=== PATIENT | female | born 1990 | race African-American/Black ===

== ENCOUNTER 2024-02-23 10:05 | Outpatient (AMB) | payer BC, SELFPAY ==
--- NOTE | 2024-02-23 10:07 | MHC.PC.OV ---
Vital Signs 02/23/24 10:11 Height 5 ft 4 in Weight 221 lb BMI 37.9 BP 112/70 Blood Pressure Location Rt brachial Position Sitting Pulse 62 Pulse Source Pulse Oximeter Pulse Oximetry (%) 98 Intake Visit Reasons: CONSULTING SERVICES MANAGER /// Est Care Intake Note: pt is here for est care Manager Testing Required: No Accompanied by: Self / Same As Patient Allergies No Known Allergies Allergy (Verified 02/23/24 10:09) Medication List - Last Reconciled 02/23/24 by Isidro Washington MD No Known Home Meds Tobacco use date assessed: 02/23/24 Dental Screening Dental Screen Date: 02/23/24 Did you have a dental visit in the last 12 months?: Yes Did you have a dental problem in the last 6 months where you did not have access to dental care?: No Was dental information given to patient?: Patient has dentist HPI CONSULTING SERVICES MANAGER /// Est Care HPI Details New Patient? ?? Prior PCP:?No PCP Acute issue(s):? Plantar fasciitis ?? PMHx:? Chronic sore throat as a child. SurgHx:? None FHx:? Mom: DM2. Uncles: HTN. SocHx:? Nonsmoker. EtOH: Occassioanl Wine 1-2 dr 1-2 x a month. No drugs PFSH Surgical History (Updated 02/23/24 @ 10:12 by Tyson Oleary CMA) No pertinent past surgical history Family History (Updated 02/23/24 @ 10:13 by Tyson Oleary CMA) Mother Diabetes Father No problems noted. Social History (Updated 02/23/24 @ 10:14 by Tyson Oleary CMA) Housing: Apartment Alcohol intake: current Alcohol intake frequency: a few times a month Alcohol type: wine Patient Tobacco Use Status: Never used Tobacco e-Cigarette/Vaping Use: Never Used Use of substances other than those prescribed or required for medical reasons: No service: No Current occupational status: employed Current occupation: professor @ [employer] Current occupational exposures/hazards: No Cognitive needs: No Hearing needs: No Vision needs: No Questionnaire PHQ-9 Over the last 2 weeks, how often have you been bothered by any of the following problems? 1. Little interest or pleasure in doing things: not at all 2. Feeling down, depressed, or hopeless: not at all 3. Trouble falling or staying asleep, or sleeping too much: not at all 4. Feeling tired or having little energy: not at all 5. Poor appetite or overeating: not at all 6. Feeling bad about yourself - or that you are a failure or have let yourself or your family down: not at all 7. Trouble concentrating on things, such as reading the newspaper or watching television: not at all 8. Moving or speaking so slowly that other people could have noticed. Or the opposite - being so fidgety or restless that you have been moving around a lot more than usual: not at all 9. Thoughts that you would be better off or of hurting yourself in some way: not at all Total score: 0 Depression Screening Interpretation: Negative Depression Screening Done: Yes 75846 - PHQ-9 Billing: Yes Source: Developed by Drs. Christian Valera, Dafne Braxton, Alex Cheatham and colleagues, with an educational nhi from [employer]. Thrive Questionnaire Date Thrive assessed: 02/23/24 I am a: Patient What is your living situation today?: I have a steady place to live Within the past 12 months, did the food you bought not last and you didn't have the money to get more?: Never true Within the past 12 months, did you worry whether your food would run out before you got money to buy more?: Never true Do you have trouble paying for medicines?: No Do you have trouble getting transportation to medical appointments?: No Do you have trouble paying your heating and electricity bill?: No Do you have trouble taking care of your child, family member or friend?: No Do you have trouble with day-to-day activities such as bathing, preparing meals, shopping, managing finances, etc.?: No Are you currently unemployed and looking for a job?: No Are you interested in more education?: No Please select the resources that you would like help with: None Currently or been in a relationship where the following occur: No concerns reported THRIVE Score: 0 AUDIT C Alcohol Use Questionnaire (AUDIT-C) 1. How often do you have a drink containing alcohol?: Monthly or less 2. How many drinks containing alcohol do you have on a typical day when you are drinking?: 1 or 2 3. How often do you have six or more drinks on one occasion?: Never Total Score: 1 Score Reviewed/Action Taken: Yes CORAL-7 AMB Questionnaire CORAL-7 Date CORAL - 7 assessed: 02/23/24 Feeling nervous, anxious, or on edge: 0 = Not at all Not being able to stop or control worryin = Not at all Worrying too much about different things: 0 = Not at all Trouble relaxin = Not at all Being so restless that it is hard to sit still: 0 = Not at all Becoming easily annoyed or irritable: 0 = Not at all Feeling afraid as if something awful might happen: 0 = Not at all Total CORAL-7 score (0-4 normal; 5-9 mild; 10-14 moderate; 15-21 severe): 0 Source: Developed by Drs. Christian Valera, Dafne Braxton, Alex Cheatham and colleagues, with an educational nhi from [employer]. CORAL-7 Assessment Billing CORAL-7 Assessment Tool: CORAL-7 Assessment 03871 Review of Systems Const Denies chills, Denies fatigue, Denies fever(s), Denies headache(s) and Denies weakness Eyes Denies change in vision ENT Denies dizziness, Denies headache(s), Denies hearing loss, Denies nasal congestion, Denies sinus pain, Denies sinus pressure and Denies sore throat Card Denies chest pain, Denies lightheadedness, Denies dyspnea and Denies other (palpitations) Resp Denies cough, Denies dyspnea and Denies wheezing GI Denies abdominal pain, Denies melena, Denies hematochezia, Denies change in bowel habits, Denies dyspepsia and Denies nausea Denies hematuria and Denies dysuria Musc Denies abnormal gait, Denies myalgias, Denies arthralgias, Denies numbness and Denies tingling Skin/Breast Denies rash, Denies unusual bruising and Denies wounds Neuro Denies abnormal gait, Denies dizziness, Denies headache(s), Denies memory loss, Denies numbness, Denies Sensory deficit (Neuro), Denies tingling and Denies weakness Psych Denies anxiety, Denies depression and Denies memory loss Endo Denies cold intolerance, Denies fatigue, Denies heat intolerance, Denies polydipsia and Denies polyuria Yogesh/Lymph Denies easy bleeding and Denies easy bruising Aller/Immun Denies wheezing Physical exam (Primary Care) Vital Signs: Last Vital Signs Pulse 62 02/23/24 10:11 BP 112/70 02/23/24 10:11 Pulse Ox 98 02/23/24 10:11 BMI result Body Mass Index 37.9 Tobacco/Smoking Status: Tobacco use Status Tobacco use date assessed 02/23/24 02/23/24 10:10 Patient Tobacco Use Status Never used Tobacco 02/23/24 10:14 e-Cigarette/Vaping Use Never Used 02/23/24 10:14 PHQ-9: PHQ-9 Score PHQ-9: Total score 0 02/23/24 10:10 Depression Screening Interpretation: Negative Thrive Assessment: Date of Thrive Assessment Date Thrive assessed 02/23/24 02/23/24 10:10 Currently or been in a relationship where the following occur: No concerns reported Const General: no acute distress, well developed, alert and awake Nutritional Appearance: well nourished Orientation/consciousness: patient oriented x3 HENMT Head: Yes normocephalic and Yes atraumatic Ears: hearing grossly normal bilaterally and TM's normal bilaterally General nose exam: Normal external nose present and Normal nares present Mouth: Normal oral and palatal mucosa present and moist mucous membranes Teeth and gingiva: dentition normal Throat: Yes posterior oropharynx normal Eyes General: appearance normal, both eyes and all related structures Pupils: Equal, round and reactive pupils present and Pupil accommodation reflex normal EOM: EOMs intact bilaterally Neck Neck: Yes normal visual inspection, Yes no lymphadenopathy and Yes trachea midline Thyroid: Thyroid normal Carotids: no bruits Lymphatic: no lymphadenopathy noted Chest Chest palpation & inspection: normal inspection of the chest Resp Effort & Inspection: normal respiratory effort Auscultation: clear to auscultation bilaterally Cardio Rate: regular rate Rhythm: regular rhythm Heart sounds: S1 normal heart sound present, S2 normal heart sound present, no gallops, no murmurs and no rubs Bruits: no abdominal aortic bruits and no carotid bruits GI Palpation (GI): No Abdominal aortic bruit present, Soft to palpation, nontender, No hepatosplenomegaly present and No Rebound tenderness present Auscultation: normal bowel sounds General: Yes no CVA tenderness Back/Spine/Pelvis Back: no CVA tenderness Cervical Spine: cervical ROM normal and No Cervical spine tenderness Thoracic/Lumbar Spine: thoraco-lumbar ROM normal, No pain with thoraco-lumbar ROM, No thoracic spinal tenderness and No lumbar spinal tenderness Skin Lesions: no lesions Rashes: no rashes Trauma: no lacerations or abrasions Wounds: no wounds Nails: normal Neuro General: patient oriented x3 Cranial nerves: Yes Equal, round and reactive pupils present Cognition (Neuro): normal cognition Gait exam (Neuro): Normal gait present Motor exam (neuro): 5/5 motor strength present throughout Sensory Exam: No Sensory deficit (Neuro) Deep tendon reflexes (DTR's): Right patellar reflex intensity grade: 2+ and Left patellar reflex intensity grade: 2+ Extrem General: Yes normal to inspection and No edema Psych Appearance: grossly normal Affect: normal affect Attitude: cooperative Thought process: Normal thought process present Coding Level of Care Code New Pt Level 3 (58046) New Pt Prev Care 18-39yr(22132 Diagnoses Adult general medical exam Z00.00 Plantar fasciitis M72.2 Screening for cervical cancer Z12.4 Additional Codes CORAL-7 Assessment Billing - CORAL-7 Assessment Tool: CORAL-7 Assessment 66611 ([id number]) PHQ-9 - 07130 - PHQ-9 Billing: Yes ([id number]) Assessment & Plan Assessment & Plan (1) Adult general medical exam: Code(s): Z00.00 - Encounter for general adult medical examination without abnormal findings Category: Medical Plan: 34-year-old?female?presents?as?new?patient?for?complete?physical?exam Encouraged?healthy?diet?with?active?lifestyle (2) Plantar fasciitis: Code(s): M72.2 - Plantar fascial fibromatosis Category: Medical Plan: Left?plantar?foot?pain, likely?plantar?fasciitis Demonstrated?exercises NSAIDs Ice/heat Heel?cups/cushions?and?consider?different?footwear If?not?improving?will?refer?to?Podiatry (3) Screening for cervical cancer: Code(s): Z12.4 - Encounter for screening for malignant neoplasm of cervix Category: Medical Plan: Patient?has?not?had?a?Pap?smear?in?greater?3?years. 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 Panel Fast Today Z00.00 - Encounter for general adult medical examination without abnormal findings TSH reflex Free T4 Today Z00.00 - Encounter for general adult medical examination without abnormal findings Microalbumin, Random (w Creat) Today I10 - Essential (primary) hypertension
[2024-02-23 10:11] VITALS: BP 112/70; PULSE 62; O2SAT 98; BMI 37.9
== END 2024-02-23 10:50 | disposition home or self-care (01) ==
PROVIDERS: PCP Family Medicine; Visit Provider Family Medicine
DX: Z00.00 Encounter for general adult medical examination without abnormal findings (principal); M72.2 Plantar fascial fibromatosis

== ENCOUNTER → 2024-02-23 10:05 | Outpatient (BNVA) | payer BC, SELFPAY | PROVIDERS: PCP Family Medicine; Visit Provider Family Medicine | DX: Z00.00 Encounter for general adult medical examination without abnormal findings (principal); M72.2 Plantar fascial fibromatosis | CPT/HCPCS: 96127 ==

== ENCOUNTER 2024-02-26 09:40 | Outpatient (REF) | payer BC, SELFPAY ==
[2024-02-26 11:00] LABS: MANUAL DIFF FLAG NO
[2024-02-26 11:31] LABS: Basophils Percent Auto 0.7 % (0-2); Eosinophils Absolute Auto 0.1 X10*3/uL (0.0-0.4); Hematocrit 35.8 % (37.0-47.0); Hemoglobin 11.2 g/dl (12.0-16.0); Imm Gran Abs Auto 0.01 X10*3/uL (0.00-0.03); Imm Gran Pct Auto 0.2 % (0.0-0.4); Lymphocytes Absolute Auto 2.9 X10*3/uL (1.2-4.9); Mean Corpuscular HGB Conc 31.3 g/dl (31.0-35.0); Mean Corpuscular Hemoglobin 24.8 pg (27.0-33.0); Mean Corpuscular Volume 79.2 fL (80.0-98.0); Mean Platelet Volume 11.1 fL (9.4-12.3); Monocytes Absolute Auto 0.4 X10*3/uL (0.1-1.2); Neutrophils Absolute Auto 2.4 x10*3/uL (2.0-8.3); Neutrophils Percent Auto 41.1 % (45-73); Platelet Count 298 X10*3/uL (160-400); Red Blood Count 4.52 X10*6/uL (4.20-5.50); Red Cell Distribution Width 14.6 % (11.0-16.0); White Blood Count 5.7 X10*3/uL (4.8-10.8)
[2024-02-26 12:22] LABS: Alanine Aminotransferase 16 U/L (0-31); Albumin Level 3.8 g/dL (3.5-5.0); Alkaline Phosphatase 134 U/L (39-117); Anion Gap 8 (12-20); Aspartate Amino Transferase 22 U/L (5-31); Bilirubin Total 0.3 mg/dL (0.0-1.0); Blood Urea Nitrogen 17 mg/dL (9-16); Calcium 9.2 mg/dL (8.4-10.2); Carbon Dioxide 29 mmol/L (22-29); Chloride 105 mmol/L (96-108); Cholesterol 177 mg/dL (<200); Estimated Glomerular Filt Rate > 60; Glucose Fasting 84 mg/dL (60-99); HDL Cholesterol 60 mg/dL (>40); LDL Cholesterol Calculated 105 mg/dL (<100); Potassium 4.2 mmol/L (3.3-5.1); Sodium 138 mmol/L (135-145); TSH reflex Free T4 0.74 uIU/mL (0.32-4.0); Total Protein 7.5 g/dL (6.5-8.0); Triglycerides 60 mg/dL (<150)
[2024-02-26 14:06] LABS: Appearance Urine Clear; Color Urine Yellow; Glucose Urine UA Negative (Negative); Leukocyte Esterase Urine Negative (Negative); Nitrite Urine Negative (Negative); PH 7.5 (5.0-9.0); Urine Blood Negative (Negative); Urine Ketones Negative (Negative); Urine Protein Negative (Neg-Trace)
[2024-02-26 14:36] LABS: Creatinine Urine 39.48 mg/dL; Microalbumin Urine < 5.0 mg/L
[2024-02-28 00:38] LABS: LDL Cholesterol Direct 94 mg/dL (<100)
== END 2024-02-26 09:41 | disposition home or self-care (01) ==
LOC: HO.WFDLDS 09:40
PROVIDERS: Visit Provider Family Medicine
DX: Z00.00 Encounter for general adult medical examination without abnormal findings (principal); I10 Essential (primary) hypertension; E78.5 Hyperlipidemia, unspecified
CPT/HCPCS: 36415; 80053; 80061; 81003; 82043; 82570; 83721; 84443; 85025

== ENCOUNTER 2024-05-01 09:10 | Outpatient (REF) | payer BC, SELFPAY | END 2024-05-01 09:11 | disposition home or self-care (01) | LOC: HO.LAB 09:10 | PROVIDERS: PCP Family Medicine; Visit Provider Advanced Practice Midwife | DX: Z13.89 Encounter for screening for other disorder (principal) ==

== ENCOUNTER 2024-05-01 09:10 | Outpatient (AMB) | payer BC, SELFPAY ==
--- NOTE | 2024-05-01 09:13 | A.OFFVIS_ITS ---
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 Mascara Molder: Mascara Molder Present (Iraida) Accompanied by: Self / Same As Patient Allergies No Known Allergies Allergy (Verified 05/01/24 09:17) Medication List - Last Reconciled 05/01/24 by Ariana Hernadez CNM No Known Home Meds Is last menstrual period known: Yes Last menstrual period: 03/29/24 Post menopausal: No Patient : No HPI HPI SEC[employer] SCHO[employer]INCIPAL Annual/PCP ref: Details: Patient here for tube winder annual exam and she wants to talk about her periods being irregular and she is trying to get she got in December. 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 She tries to eat very clean and she does do some exercise. She recently saw her primary care provider and had full blood work and she said the only thing was that she was a little bit anemic. Her periods have been more i rregular since she gained weight perhaps around 3 years ago they were more regular then this current period is 34 days late so far and she has missed up to 3 months in the past and the last long gap a few months ago was 65 days. [facility] Surgical History No pertinent past surgical history Family History Mother Diabetes Father No problems noted. 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[employer] Current occupational exposures/hazards: No Cognitive needs: No Hearing needs: No Vision needs: No Female Reproductive History Menstrual Age of Menarche: 13 Duration of menses: 3-5 days Date of last menstrual period: 03/29/24 Total pregnancies: 0 Physical Exam Vital Signs: Last Vital Signs BP 126/74 05/01/24 09:18 BMI result Body Mass Index 36.9 Const General: healthy appearing, comfortable, no acute distress, well developed and alert Nutritional Appearance: average body habitus Orientation/consciousness: patient oriented x3 Limitations: no limitations HEENT Head: Yes normocephalic Neck Neck: Yes normal visual inspection Chest Chest palpation & inspection: normal inspection of the chest Breast/axilla inspection: normal inspection of the breasts and normal inspection of the axillae Breast/axilla palpation: normal palpation of the breasts and normal palpation of the axillae Resp Effort & Inspection: normal respiratory effort GI Inspection: Yes normal to inspection, No Abdominal wall edema and No distended Palpation (GI): Soft to palpation and nontender Other: External exam within normal limits vagina is pink and moist very healthy- appearing cervix nulliparous pink smooth healthy scant amount white discharge which possibly could be consistent with luteal phase cervix is nulliparous long close thick mobile nontender uterus nontender mobile difficult feel but feels midposition adnexa nontender nonenlarged and very good tone with Kegel. General: Yes bladder normal to palpation External Female Exam: normal external appearance and normal appearance of the urethra Speculum Exam - Vagina: normal appearance of the vagina, normal palpation and normal vaginal discharge Speculum Exam - Cervix: normal appearance of the cervix, normal palpation and nontender Bimanual exam- vagina & uterus: normal bimanual exam, normal palpation, uterine size normal, bladder normal to palpation, consistency normal, normal palpation, uterine mobility normal, uterine shape normal, No Cervical tenderness present, non-tender and no cervical motion tenderness Bimanual Exam- Adnexa, other: normal adnexae, no masses, normal and No adnexal tenderness Neuro General: patient oriented x3 Assessment & Plan Assessment & Plan (1) Screening for cervical cancer: Comment: pap done 05/01/24. Code(s): Z12.4 - Encounter for screening for malignant neoplasm of cervix Category: Medical (2) Well woman exam with routine gynecological exam: Code(s): Z01.419 - Encounter for gynecological examination (general) (routine) without abnormal findings Category: Medical (3) Menstrual periods irregular: Code(s): N92.6 - Irregular menstruation, unspecified Category: Medical (4) Patient desires : Code(s): Z31.9 - Encounter for procreative management, unspecified Category: Medical (5) Obesity (BMI 30.0-34.9): Code(s): E66.811 - Obesity, class 1 Category: Medical Plan -----Discussed in this visit the following: healthy balanced diet, regular and consistent exercise, getting recommended health screens, doing the best she can for her particular health concerns, kegel exercises, pap smear screening and followup recommendations, mammography screening and SBE, normal changes in cycles in her life stage--- ( not due for mammogram till age 42) ---I discussed with pt some of the optimal strategies for planning a , including achieving the best health she can before , including heathy balanced diet, exercise, wt loss to ideal BMI if appropriate, avoiding toxic substances and medications, not smoking, and taking a multivitamin w folic acid daily. Any specific health concerns should be managed before seeking/ putting oneself at risk of pregancy. In addition I reviewed normal cycles, fertility awareness and signs of ovulation, and timing to avoid, and achieve when she feel ready. I also discussed emotional and relationship and support readiness before embarking on . --Discussed in general terms the challenges of obesity and challenges for her health and efforts she is engaging in to manage this including dietary changes water intake attention to sleep inclusion of a regular exercise have it and dealing with the may need stressors of life that can contribute to obesity in general. Encouraged her to continue in all have her best efforts --This note is constructed using voice recognition software. While every effort has been made to ensure accuracy, logistics administrator errors may have been included. -----discussed in particular during this visit the interplay between elevated body mass and all of the elevated hormonal changes that occur with this and the metabolic changes that occur as well over time with increased risk of hypertension diabetes and other issues. Discussed that in particular as relates to menstrual cycles and fertility this elevated hormonal milieu of elevated estrogen and testosterone amongst many others contributes to suppress ovulation at times and therefore late menstrual cycles and also the side effects of increased facial hair and hair thinning on the scalp and acne etc. for women. In particular it can make it difficult to time when she might be ovulating and therefore harder to get in addition obesity puts 1 at risk for other health challenges in a such as hypertension gestational diabetes and many other risks. Discussed that all of these concerns would be best served by working at weight loss in a targeted way with very healthy diet and increasing ones metabolism with aerobic exercise to 30-60 minutes a day. Also discussed other methodologies that are currently around such as the weight loss medications and surgeries however they are not usually considered unless there are comorbidities. Discussed that if in her case as she is 34 years old if she kind of reaches the six-month point having good records of her menses when she has had symptoms or positive OPKs's as well as when she has had sex, she might be william not to waste too much time before seeking fertility services and the only place aware of in this part of [place] is in the [facility], and she might need a referral from her primary or she might not. -Pap smear was done this visit as well as testing for gonorrhea chlamydia trichomoniasis bacterial vaginosis yeast, routines. .1 yr or prn Coding Level of Care Code New Pt Prev Care 18-39yr(74033 Diagnoses Screening for cervical cancer Z12.4 Well woman exam with routine gynecological exam Z01.419 Menstrual periods irregular N92.6 Patient desires Z31.9 Obesity (BMI 30.0-34.9) E66.811 Time Spent (min) 50 Comment 90% spent discussing the interplay between weight issues her her cycles and efforts to con
[2024-05-01 09:18] VITALS: BP 126/74; BMI 36.9
== END 2024-05-01 10:21 | disposition home or self-care (01) ==
LOC: HO.HWSM 09:11
PROVIDERS: PCP Family Medicine; Visit Provider Advanced Practice Midwife
DX: Z01.419 Encounter for gynecological examination (general) (routine) without abnormal findings (principal); N92.6 Irregular menstruation, unspecified; Z31.9 Encounter for procreative management, unspecified; E66.811 Obesity, class 1
CPT/HCPCS: 99385; 99459

== ENCOUNTER 2024-05-01 15:16 | Outpatient (REF) | payer BC, SELFPAY ==
[2024-05-02 05:11] LABS: CT PCR NOT DETECTED (Not Detect.); NG PCR NOT DETECTED (Not Detect.)
[2024-05-02 13:02] LABS: Bacterial Vaginosis PCR POSITIVE (Negative); Candida Group PCR NOT DETECTED (Not Detect); Candida glab krusei PCR NOT DETECTED (Not Detect); Trichomonas vaginalis PCR NOT DETECTED (Not Detect)
[2024-05-08 13:58] LABS: HPV Genotype 16 Negative (Negative); HPV Genotype 18 Negative (Negative); HPV High Risk Negative (Negative)
== END 2024-05-01 15:17 | disposition home or self-care (01) ==
LOC: HO.LNP 15:16
PROVIDERS: Visit Provider Advanced Practice Midwife
DX: Z00.00 Encounter for general adult medical examination without abnormal findings (principal); N89.8 Other specified noninflammatory disorders of vagina; Z20.2 Contact with and (suspected) exposure to infections with a predominantly sexual mode of transmission; Z11.51 Encounter for screening for human papillomavirus (HPV); Z72.89 Other problems related to lifestyle; Z87.42 Personal history of other diseases of the female genital tract
CPT/HCPCS: 81515; 87491; 87591; 87626; 88175

== ENCOUNTER 2024-06-07 09:54 | Outpatient (AMB) | payer BC, SELFPAY ==
--- NOTE | 2024-06-07 09:55 | A.OFFVIS_ITS ---
Intake Visit Reasons: Discussing ,Hormonal test Public Health Sanitarian Technician Required: No Information Interpreted: non-clinical & clinical Allergies No Known Allergies Allergy (Verified 06/07/24 09:55) Medication List - Last Reconciled 06/07/24 by Ariana Hernadez CNM No Known Home Meds HPI HPI Discussing ,Hormonal test: Details: This is a tele visit to discuss patient's questions about fertility. She and I had a visit earlier and she has been tracking her periods her last period just came on June 02 and she had a 65 day cycle culminating in that.. She got recently and is 34 years old and is eager to get . 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 She used to have normal regular periods before she gained the weight. She has been keeping very careful track she did an O PK once in the last cycle and it was positive but it did not seem to correlate with symptoms for her. She has an appointment next week at [facility] in [place]. She is actually wondering what questions she needs to ask them and so this visit was spent exploring her history of her cycles and again revisiting the relationship between weight gain and elevated hormonal levels which in turn then suppress regular ovulation and discussed that it would be appropriate to wait till she speaks with them to have any discussion of particular hormone tests done and they will guide her journey. Her most burning question was ?can I get and I suggested that that is a great question to start with and they will help guide her. I recommend to her that she do whatever she can to work towards having the healthiest cleanest diet low in carbs and higher in protein and fresh vegetables and work on being physically active and this will all help her achieve that her health in general which will aid in healthier . I also discussed with her places in the [facility] that are available to her for childbirth and she would not be interested in a low into event of so [facility] or [facility] would be her options. She has not yet started vitamins as we discussed I did discuss the importance of a folic acid supplement. [facility] Surgical History No pertinent past surgical history Family History Mother Diabetes Father No problems noted. 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[employer] Current occupational exposures/hazards: No Cognitive needs: No Hearing needs: No Vision needs: No Female Reproductive History Menstrual Age of Menarche: 13 Date of last menstrual period: 06/02/24 Telehealth Telehealth Telehealth Platform: Telephone Location of provider rendering services: practice address Location of patient: address on file Patient Identification confirmed using: Name, : Yes Telehealth method: video Patient verbally consented to treatment: Yes Patient verbally consented to billing insurance company: Yes Patient informed of any privacy concerns related to visit: Yes Minutes spent on Phone/Video with Pt.: 18 (5 c/18 video/7 charting=30) Assessment & Plan Assessment & Plan (1) Menstrual periods irregular: Code(s): N92.6 - Irregular menstruation, unspecified Category: Medical (2) Patient desires : Code(s): Z31.9 - Encounter for procreative management, unspecified Category: Medical (3) Obesity (BMI 30.0-34.9): Code(s): E66.811 - Obesity, class 1 Category: Medical Plan This is a tele visit to discuss patient's questions about fertility. She and I had a visit earlier and she has been tracking her periods her last period just came on June 02 and she had a 65 day cycle culminating in that.. She got recently and is 34 years old and is eager to get . 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 She used to have normal regular periods before she gained the weight. She has been keeping very careful track she did an O PK once in the last cycle and it was positive but it did not seem to correlate with symptoms for her. She has an appointment next week at [facility] in [place]. She is actually wondering what questions she needs to ask them and so this visit was spent exploring her history of her cycles and again revisiting the relationship between weight gain and elevated hormonal levels which in turn then suppress regular ovulation and discussed that it would be appropriate to wait till she speaks with them to have any discussion of particular hormone tests done and they will guide her journey. Her most burning question was ?can I get and I suggested that that is a great question to start with and they will help guide her. I recommend to her that she do whatever she can to work towards having the healthiest cleanest diet low in carbs and higher in protein and fresh vegetables and work on being physically active and this will all help her achieve that her health in general which will aid in healthier . I also discussed with her places in the [facility] that are available to her for childbirth and she would not be interested in a low into event of so [facility] or [facility] would be her options. She has had not yet started vitamins with folic acid. I discussed that they will probably discussed that with her as well. Coding Level of Care Code Tele Est Pt Level 3 (15715) Diagnoses Menstrual periods irregular N92.6 Patient desires Z31.9 Obesity (BMI 30.0-34.9) E66.811
== END 2024-06-07 11:09 | disposition home or self-care (01) ==
LOC: HO.HWS 09:54
PROVIDERS: PCP Family Medicine; Visit Provider Advanced Practice Midwife
DX: N92.6 Irregular menstruation, unspecified (principal); Z31.9 Encounter for procreative management, unspecified; E66.811 Obesity, class 1
CPT/HCPCS: 99213

== ENCOUNTER 2024-11-01 11:22 | Outpatient (AMB) | payer BC, SELFPAY ==
[2024-11-01 11:30] VITALS: BP 118/88; PULSE 65; O2SAT 100; BMI 36.9
--- NOTE | 2024-11-01 11:30 | MHC.PC.OV ---
Vital Signs 11/01/24 11:30 Height 5 ft 4 in Weight 215 lb 2 oz BMI 36.9 BP 118/88 Blood Pressure Location Lt brachial Position Sitting Pulse 65 Pulse Source Pulse Oximeter Pulse Oximetry (%) 100 Oxygen Delivery Method Room Air Intake Visit Reasons: Tuberculosis and Syphilis order request Allergies No Known Allergies Allergy (Verified 11/01/24 11:32) Medication List - Last Reconciled 11/01/24 by Isidro Washington MD metformin ER mg PO Tobacco use date assessed: 11/01/24 Dental Screening Dental Screen Date: 11/01/24 Did you have a dental visit in the last 12 months?: No Did you have a dental problem in the last 6 months where you did not have access to dental care?: No Was dental information given to patient?: No HPI Tuberculosis and Syphilis order request HPI Details 34 y/o female presents today to request tuberculosis and syphilis order request. Denies any fevers, chills, shortness of breath. PFSH Surgical History No pertinent past surgical history Family History Mother Diabetes Father No problems noted. 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 1. Little interest or pleasure in doing things: not at all 2. Feeling down, depressed, or hopeless: not at all 3. Trouble falling or staying asleep, or sleeping too much: not at all 4. Feeling tired or having little energy: not at all 5. Poor appetite or overeating: not at all 6. Feeling bad about yourself - or that you are a failure or have let yourself or your family down: not at all 7. Trouble concentrating on things, such as reading the newspaper or watching television: not at all 8. Moving or speaking so slowly that other people could have noticed. Or the opposite - being so fidgety or restless that you have been moving around a lot more than usual: not at all 9. Thoughts that you would be better off or of hurting yourself in some way: not at all Total score: 0 Depression Screening Interpretation: Negative Depression Screening Done: Yes Source: Developed by Drs. Christian Valera, Dafne Braxton, Alex Cheatham and colleagues, with an educational nhi from [employer]. Thrive Questionnaire Date Thrive assessed: 02/19/24 I am a: Patient What is your living situation today?: I have a steady place to live Within the past 12 months, did the food you bought not last and you didn't have the money to get more?: Never true Within the past 12 months, did you worry whether your food would run out before you got money to buy more?: Never true Do you have trouble paying for medicines?: No Do you have trouble getting transportation to medical appointments?: No Do you have trouble paying your heating and electricity bill?: No Do you have trouble taking care of your child, family member or friend?: No Do you have trouble with day-to-day activities such as bathing, preparing meals, shopping, managing finances, etc.?: No Are you currently unemployed and looking for a job?: No Are you interested in more education?: No Please select the resources that you would like help with: None Currently or been in a relationship where the following occur: No concerns reported THRIVE Score: 0 AUDIT C Alcohol Use Questionnaire (AUDIT-C) 1. How often do you have a drink containing alcohol?: Monthly or less 2. How many drinks containing alcohol do you have on a typical day when you are drinking?: 1 or 2 3. How often do you have six or more drinks on one occasion?: Never Total Score: 1 Score Reviewed/Action Taken: Yes CORAL-7 AMB Questionnaire CORAL-7 Date CORAL - 7 assessed: 02/23/24 Feeling nervous, anxious, or on edge: 0 = Not at all Not being able to stop or control worryin = Not at all Worrying too much about different things: 0 = Not at all Trouble relaxin = Not at all Being so restless that it is hard to sit still: 0 = Not at all Becoming easily annoyed or irritable: 0 = Not at all Feeling afraid as if something awful might happen: 0 = Not at all Total CORAL-7 score (0-4 normal; 5-9 mild; 10-14 moderate; 15-21 severe): 0 Source: Developed by Drs. Christian Valera, Dafne Braxton, Alex Cheatham and colleagues, with an educational nhi from [employer]. Review of Systems Const Denies chills, Denies fatigue, Denies fever(s), Denies headache(s) and Denies weakness ENT Denies dizziness and Denies headache(s) Card Denies dyspnea Resp Denies cough, Denies dyspnea, Denies wheezing and Denies other (shortness of breath) Musc Denies numbness and Denies tingling Neuro Denies dizziness, Denies headache(s), Denies numbness, Denies tingling and Denies weakness Psych Denies anxiety and Denies depression Endo Denies fatigue Aller/Immun Denies wheezing Physical exam (Primary Care) Vital Signs: Last Vital Signs Pulse 65 11/01/24 11:30 BP 118/88 11/01/24 11:30 Pulse Ox 100 11/01/24 11:30 Oxygen Delivery Method Room Air 11/01/24 11:30 BMI result Body Mass Index 36.9 Tobacco/Smoking Status: Tobacco use Status Tobacco use date assessed 11/01/24 11/01/24 11:34 Patient Tobacco Use Status Never used Tobacco 11/01/24 11:34 e-Cigarette/Vaping Use Never Used 11/01/24 11:34 PHQ-9: PHQ-9 Score PHQ-9: Total score 0 11/01/24 11:39 Depression Screening Interpretation: Negative Thrive Assessment: Date of Thrive Assessment Date Thrive assessed 02/19/24 11/01/24 11:34 Currently or been in a relationship where the following occur: No concerns reported Const General: well developed; No acute distress Nutritional Appearance: well nourished Orientation/consciousness: patient oriented x3 HENMT Head: Yes normocephalic and Yes atraumatic Eyes General: appearance normal, both eyes and all related structures Pupils: Equal, round and reactive pupils present EOM: EOMs intact bilaterally Resp Effort & Inspection: normal respiratory effort Neuro General: patient oriented x3 and gait normal Cranial nerves: Yes Equal, round and reactive pupils present Psych Affect: normal affect Coding Level of Care Code Est Pt Level 3 (58742) Diagnoses Screening for tuberculosis Z11.1 Screening for STD (sexually transmitted disease) Z11.3 Immunization counseling Z Assessment & Plan Assessment & Plan (1) Screening for tuberculosis: Code(s): Z11.1 - Encounter for screening for respiratory tuberculosis Category: Medical (2) Screening for STD (sexually transmitted disease): Code(s): Z11.3 - Encounter for screening for infections with a predominantly sexual mode of transmission Category: Medical (3) Immunization counseling: Code(s): Z. - Encounter for immunization safety counseling Category: Medical Plan Patient says she needs tuberculosis and syphilis testing for immigration process No respiratory illness. Asymptomatic for any illness Counseled patient regarding immunizations including influenza, Tdap, Varivax She can get these vaccines together at any time Orders: Orders Lipid Panel Today Z00.00 - Encounter for general adult medical examination without abnormal findings Microalbumin, Random (w Creat) Today I10 - Essential (primary) hypertension Syphilis Screen Today Z11.3 - Encounter for screening for infections with a predominantly sexual mode of transmission HIV Ab/Ag Today Z11.3 - Encounter for screening for infections with a predominantly sexual mode of transmission T Spot TB Today Z11.1 - Encounter for screening for respiratory tuberculosis Hepatitis B,C Profile Today Z11.3 - Encounter for screening for infections with a predominantly sexual mode of transmission Comprehensive Met. Panel Today Z00.00 - Encounter for general adult medical examination without abnormal findings LDL Cholesterol Direct Today E78.5 - Hyperlipidemia, unspecified Complete Blood Count Auto Diff Today Z00.00 - Encounter for general adult medical examination without abnormal findings TSH reflex Free T4 Today Z00.00 - Encounter for general adult medical examination without abnormal findings CT NG by PCR Urine Today Z11.3 - Encounter for screening for infections with a predominantly sexual mode of transmission MMR IgG Measles Mumps Rubella Today Z71 - Encounter for immunization safety counseling
--- OUTSIDE RECORDS SUMMARY | 2024-11-01 12:01 | XMS_ITS | Clinical Summary ---
Author Organization [facility] Address [address] [place] [phone] Phone Care Team Providers Care Loans Officer Name Role Phone Pcp, Unknown Primary Care Provider Unavailabl e Social History Tobacco Use Types Packs/Day Years Used Date Smoking Tobacco: Never Assessed Education Answer Date Recorded Are you interested in more education? Not on sally e 08/28/2023 Are you concerned about learning? Not on file 08/28/2023 No 08/28/2023 No 08/28/2023 Digital Access Answer Date Recorded No 08/28/2023 No 08/28/2023 Reliable internet access at home? Not on file 08/28/2023 Device with a working camera? Not on file Comments Unknown Sex and Gender Information Value Date Recorded Sex Assigned at Not on file Legal Sex Female 10:05 AM EDT Gender Identity Not on file Sexual Orientation Not on file Plan of Treatment Health Maintenance Due Date Last Done Comments Adult Td,Tdap Booster 1992 DEPRESSION SCREENING 2004 SMOKING Hx and SMOKELESS TOB ACCO SCREENING 02/14/2005 HEPATITIS C SCREENING 02/14/2010 HIV ONE-TIME SCREENING (18-6 5 YEARS) 02/14/2010 PAP SMEAR 02/14/2013 INFLUENZA VACCINE (#1) 2024 COVID-19 VACCINE (2023-2 5 season) 2024 HEPATITIS A VACCINES Aged Out No long er eligible based on patient's age to complete this topic HIB VACCINES Aged Out No longer eligi ble based on patient's age to complete this topic MENINGOCOCCAL VACCINES (ACWY) Aged Out No longer eligible based on patient's age to complete this topic MENINGOCOCCAL VACCINES (B) Aged Out N o longer eligible based on patient's age to complete this topic PNEUMOCOCCAL VACCINES (0-49 years) Aged Out No longer eligible based on patient's age to complete this topic Medical Devices Not on file Insurance [facility] PPO EPO [facility] PPO EPO [facility] PPO [facility]PO [facility] PPO EPO [facility] PPO EPO [facility] PPO EPO Care Teams Loans Officer Relationship Specialty Start Date End Date Pcp, Unknown PCP - General 08/25/23 Additional Source Comments The information contained in this document represents components of the legal health record. It is not the complete legal health record.[facility]
== END 2024-11-01 11:49 | disposition home or self-care (01) ==
LOC: HO.HMCFM 11:23
PROVIDERS: PCP Family Medicine; Visit Provider Family Medicine
DX: Z11.1 Encounter for screening for respiratory tuberculosis (principal); Z11.3 Encounter for screening for infections with a predominantly sexual mode of transmission; Z71.85 Encounter for immunization safety counseling

== ENCOUNTER 2024-11-04 09:12 | Outpatient (REF) | payer BC, SELFPAY ==
--- OUTSIDE RECORDS SUMMARY | 2024-11-04 10:47 | XMS_ITS | Clinical Summary ---
Author Organization [facility] Address [address] [place] [id number] Phone Care Team Providers Care Stone Mason Name Role Phone Pcp, Unknown Primary Care [...] topic Medical Devices Not on file Insurance [facility] PPO EPO [facility] PPO EPO [facility] PPO EPO [facility] PPO [facility]PO [facility] PPO EPO [facility] PPO EPO Care Teams Stone Mason Relationship Specialty Start Date End Date Pcp, Unknown PCP - General 08/25/23 Additional Source Comments The information contained in this document represents components of the legal health record. It is not the complete legal health record.[facility]
[2024-11-04 11:09] LABS: MANUAL DIFF FLAG NO
[2024-11-04 11:40] LABS: Hematocrit 36.0 % (37.0-47.0); Hemoglobin 11.2 g/dl (12.0-16.0); Imm Gran Abs Auto 0.00 X10*3/uL (0.00-0.03); Imm Gran Pct Auto 0.0 % (0.0-0.4); Lymphocytes Absolute Auto 2.3 X10*3/uL (1.2-4.9); Mean Corpuscular HGB Conc 31.1 g/dl (31.0-35.0); Mean Corpuscular Hemoglobin 24.9 pg (27.0-33.0); Mean Corpuscular Volume 80.2 fL (80.0-98.0); NRBC Abs Auto 0.000 X10*3/uL (0.0-0.012); NRBC Pct Auto 0.0 /100WBC (0.0-0.2); Platelet Count 230 X10*3/uL (160-400); Red Blood Count 4.49 X10*6/uL (4.20-5.50); White Blood Count 4.1 X10*3/uL (4.8-10.8)
[2024-11-04 11:57] LABS: Alanine Aminotransferase 10 U/L (0-31); Albumin Level 4.2 g/dL (3.5-5.0); Alkaline Phosphatase 107 U/L (39-117); Anion Gap 12 (12-20); Aspartate Amino Transferase 23 U/L (5-31); Blood Urea Nitrogen 10 mg/dL (9-16); Calcium 9.2 mg/dL (8.4-10.2); Carbon Dioxide 27 mmol/L (22-29); Chloride 104 mmol/L (96-108); Cholesterol 150 mg/dL (<200); Estimated Glomerular Filt Rate > 60; HDL Cholesterol 58 mg/dL (>40); Potassium 3.9 mmol/L (3.3-5.1); Sodium 139 mmol/L (135-145); Total Protein 7.8 g/dL (6.5-8.0); Triglycerides 68 mg/dL (<150)
[2024-11-04 12:14] LABS: HBS Num1 434.66 mIU/mL (0-7.99)
[2024-11-04 12:15] LABS: HBc Num1 12.34 S/CO (0.00-0.79); HBsAGNum1 0.39 S/CO (0.00-0.99); HIV Num 1 0.05 S/CO (0.00-0.99); Hepatitis B Surface Antigen Negative (Negative); ~HepC Num1 0.07 S/CO (0.00-0.79); ~Hepatitis B Surface Antibody REACTIVE (Nonreactive); ~Hepatitis C Antibody Nonreactive (Nonreactive)
[2024-11-04 12:19] LABS: Syphilis Screen Nonreactive (Nonreactive)
[2024-11-04 13:07] LABS: HBc Num2 11.79 S/CO; HBc Num3 11.67 S/CO
[2024-11-04 14:42] LABS: Appearance Urine Turbid; Glucose Urine UA Negative (Negative); PH 6.0 (5.0-9.0); Specific Gravity - Urine 1.025 (1.005-1.025)
[2024-11-04 15:33] LABS: Microalbum/Creatinine Ratio Ur 3.3 ug/mg cr (<30)
[2024-11-05 18:29] LABS: Rubeola IgG (Measles) 67.10 AU/mL
[2024-11-07 06:58] LABS: TS Negative Control Passed; TS Panel A 0; TS Panel B 3; TS Positive Control Passed; TSpotTB Negative (Negative)
== END 2024-11-04 09:13 | disposition home or self-care (01) ==
LOC: HO.WFDLDS 09:12
PROVIDERS: Referring Provider Internal Medicine; Visit Provider Family Medicine
DX: Z00.00 Encounter for general adult medical examination without abnormal findings (principal); Z11.1 Encounter for screening for respiratory tuberculosis; Z11.3 Encounter for screening for infections with a predominantly sexual mode of transmission; E78.5 Hyperlipidemia, unspecified; I10 Essential (primary) hypertension; Z71.85 Encounter for immunization safety counseling; Z11.4 Encounter for screening for human immunodeficiency virus [HIV]
CPT/HCPCS: 36415; 80053; 80061; 81003; 82043; 82570; 83721; 84443; 85025; 86481; 86592; 86704; 86706; 86735; 86762; 86765; 86780; 86803; 87340; 87389

== ENCOUNTER 2024-11-27 16:31 | Outpatient (AMB) | payer BC, SELFPAY ==
--- NOTE | 2024-11-27 16:26 | A.OFFPC_ITS ---
Intake Visit Reasons: labs Intake Note: Thao presents for a telehealth follow up to her labs. Allergies No Known Allergies Allergy (Verified 11/27/24 16:27) Tobacco use date assessed: 11/27/24 Dental Screening Dental Screen Date: 11/27/24 Did you have a dental visit in the last 12 months?: No Was dental information given to patient?: Patient declined HPI labs HPI Details 34 y/o female presents to f/u CPE-labs v ia telemed. Labs drawn 11/04/24. Reviewed labs with pt. Mild anemia. WBC mildly low at 4.1 Triglycerides 68. TC 150. LDL 68. HDL 58. TSH 0.82. PFSH Surgical History No pertinent past surgical history Family History Mother Diabetes Father No problems noted. 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 Christian Valera, Dafne Braxton, Alex Cheatham and colleagues, with an educational nhi from [email or web address]. Review of Systems Const Denies chills, Denies fatigue, Denies fever(s), Denies headache(s) and Denies weakness ENT Denies dizziness and Denies headache(s) Card Denies dyspnea Resp Denies cough, Denies dyspnea, Denies wheezing and Denies other (shortness of breath) Musc Denies numbness and Denies tingling Neuro Denies dizziness, Denies headache(s), Denies numbness, Denies tingling and Denies weakness Psych Denies anxiety and Denies depression Endo Denies fatigue Aller/Immun Denies wheezing Physical exam (Primary Care) Tobacco/Smoking Status: Tobacco use Status Tobacco use date assessed 11/27/24 11/27/24 16:30 Patient Tobacco Use Status Never used Tobacco 11/27/24 16:30 e-Cigarette/Vaping Use Never Used 11/27/24 16:30 Thrive Assessment: Date of Thrive Assessment Date Thrive assessed 02/19/24 11/27/24 16:30 Telehealth Telehealth Telehealth Platform: Telephone Location of provider rendering services: practice address Location of patient: address on file Patient Identification confirmed using: Name, : Yes Telehealth method: voice only Patient verbally consented to treatment: Yes Patient verbally consented to billing insurance company: Yes Patient informed of any privacy concerns related to visit: Yes Minutes spent on Phone/Video with Pt.: 7 Coding Level of Care Code Tele Est Pt Level 2 (97315) Diagnoses Mild anemia D64.9 Menstrual periods irregular N92.6 Assessment & Plan Assessment & Plan (1) Mild anemia: Code(s): D64.9 - Anemia, unspecified Category: Medical Plan: Patient with irregular menstrual periods and mild anemia Will continue to monitor (2) Menstrual periods irregular: Code(s): N92.6 - Irregular menstruation, unspecified Category: Medical Plan: Menstrual irregularities and infertility/inability to conceive Patient desires Had been followed By [facility] Referred back to [facility] Of note, she is on metformin. She says she was never given a formal diagnosis of PCOS. Recommend she have this investigated by [facility] specialist Orders: Referrals Infertility Reproductive Referral (female) N92.6 - Irregular menstruation, unspecified, N97.9 - Female infertility, unspecified, Z31.9 - Encounter for procreative management, unspecified
--- OUTSIDE RECORDS SUMMARY | 2024-11-27 19:29 | XMS_ITS | Clinical Summary ---
Author Organization [facility] Address [address] [place] [id number] Phone Care Team Providers Care Cyber Security Manager Name Role Phone Pcp, Unknown Primary Care [...] 02/14/2013 INFLUENZA VACCINE (#1) 2024 COVID-19 VACCINE ( - 2024-2 6 season) 2024 HEPATITIS A VACCINES Aged Out [...] topic Medical Devices Not on file Insurance [facility] PPO EPO [facility] PPO EPO [facility] PPO EPO [facility] [place] PPO EPO [facility] PPO EPO [facility] PPO EPO Care Teams Cyber Security Manager Relationship Specialty Start Date End Date Pcp, Unknown PCP - General 08/25/23 Additional Source Comments The information contained in this document represents components of the legal health record. It is not the complete legal health record.[facility]
== END 2024-11-27 17:05 | disposition home or self-care (01) ==
LOC: HO.HMCFM 16:31
PROVIDERS: PCP Family Medicine; Visit Provider Family Medicine
DX: D64.9 Anemia, unspecified (principal); N92.6 Irregular menstruation, unspecified